=== PATIENT | female | born 1955 | race Two or more races ===

== ENCOUNTER → 2017-07-26 | Outpatient (CLI) | payer OTHER ==
[~2017-07-26] MED LIST: ATOR10TA9 PO; LORA10CA PO
== END | disposition home or self-care (01) ==
LOC: STAR 14:13
PROVIDERS: ATTEND Obstetrics & Gynecology Female Pelvic Medicine and Reconstructive Surgery
DX: Z01.818 Encounter for other preprocedural examination (principal); N81.10 Cystocele, unspecified; R32 Unspecified urinary incontinence; F43.9 Reaction to severe stress, unspecified
CPT/HCPCS: 93005

== ENCOUNTER 2017-08-05 07:03 | Day surgery (SDC) | payer OTHER ==
[~2017-08-05] VITALS: Ht 144.8 cm; Wt 74.4 kg
[~2017-08-05 07:03] MED LIST changes: +BUPIVACAINE/PF 0.25% ONE; +EPINEPHRINE 1 MG/ML, 1ML ONE; +NEOMY/POLYMYXIN B GU IRR. 1 ML IRRIG ONE
[2017-08-05] MEDS ORDERED: LACTATED RINGERS 1,000 ML IV SCH (07:40)
[2017-08-05] MEDS ORDERED: FENTANYL PF 100 MCG/2ML ONE (09:10)
[2017-08-05] MEDS ORDERED: MIDAZOLAM 1 MG/ML, 2ML ONE (09:10)
[2017-08-05] MEDS ORDERED: WATER-INJECTION,STERILE 10 ML IV ONE (09:43)
[2017-08-05] MEDS ORDERED: LIDOCAINE-MPF 2% ,5ML ONE (09:43)
[2017-08-05] MEDS ORDERED: SUCCINYLCHOLINE 20 MG/ML, 10ML ONE (09:43)
[2017-08-05] MEDS ORDERED: DEXAMETHASONE 4 MG/ML, 1ML ONE (09:45)
[2017-08-05] MEDS ORDERED: ONDANSETRON 2MG/ML, 2ML ONE (09:45)
[2017-08-05] MEDS ORDERED: METOCLOPRAMIDE 5 MG/ML, 2ML ONE (09:45)
[2017-08-05] MEDS ORDERED: CEFAZOLIN 1,000 MG ONE (09:48)
[2017-08-05] MEDS ORDERED: EPHEDRINE 50 MG/ML, 1ML ONE (09:48)
[2017-08-05] MEDS ORDERED: PROPOFOL 10 MG/ML, 20ML ONE (09:48)
[2017-08-05] MEDS ORDERED: LIDOCAINE GEL 2%, 5ML ONE (09:48)
[2017-08-05] MEDS ORDERED: HYDROmorphone 1 MG/ML, 1ML IV PRN (10:00)
[2017-08-05] MEDS ORDERED: OXYcodone 5 MG/5 ML ORAL.SOL UDC PO PRN (10:00)
[2017-08-05] MEDS ORDERED: MIDAZOLAM 1 MG/ML, 2ML IV PRN (10:00)
[2017-08-05] MEDS ORDERED: FENTANYL PF 100 MCG/2ML IV PRN (10:00)
[2017-08-05] MEDS ORDERED: LABETALOL 5MG/ML, 20ML IV PRN (10:00)
[2017-08-05] MEDS ORDERED: ONDANSETRON 2MG/ML, 2ML IVPush PRN (10:00)
[2017-08-05] MEDS ORDERED: MEPERIDINE/PF 25MG/0.5ML IVPush PRN (10:00)
[2017-08-05] MEDS ORDERED: GLYCOPYRROLATE 0.4 MG/2 ML, 2ML ONE (10:35)
[2017-08-05] MEDS ORDERED: BUPIVACAINE/PF 0.25% ONE (11:26)
[2017-08-05] MEDS ORDERED: OXYcodone 5 MG/5 ML ORAL.SOL UDC ONE (11:43)
== END 2017-08-05 18:15 | disposition home or self-care (01) ==
LOC: OUT 07:03
PROVIDERS: ATTEND Obstetrics & Gynecology Female Pelvic Medicine and Reconstructive Surgery
DX: D25.0 Submucous leiomyoma of uterus (principal); N81.4 Uterovaginal prolapse, unspecified; N39.46 Mixed incontinence; K21.9 Gastro-esophageal reflux disease without esophagitis; N81.10 Cystocele, unspecified; E78.00 Pure hypercholesterolemia, unspecified; Z87.01 Personal history of pneumonia (recurrent); Z98.890 Other specified postprocedural states
CPT/HCPCS: 57265; 57282; 57288; 58552; 88307; C1771; J0171; J0330; J0690; J1100; J2250; J2405; J2704; J2765; J3010; J3490; J7120